=== PATIENT | female | born 1985 | race Caucasian/White ===

== ENCOUNTER 2019-02-16 12:21 | Observation (INO) | payer OTHER ==
[2019-02-16 13:40] LABS: ALT 17 U/L (9-52); AST 27 U/L (14-36); African American GFR (CKD) >90 (>60 ml/min/1.73 sqM); Albumin 4.6 g/dL (3.5-5.0); Alkaline Phosphatase 91 U/L (38-126); Anion Gap 12 mmol/L; Blood Urea Nitrogen 10 mg/dL (7-17); Calcium 9.7 mg/dL (8.4-10.2); Carbon Dioxide 22 mmol/L (22-30); Chloride 104 mmol/L (98-107); Glucose 125 mg/dL (74-99); Potassium 4.3 mmol/L (3.5-5.1); Sodium 138 mmol/L (137-145); Total Bilirubin 1.3 mg/dL (0.2-1.3)
[2019-02-16 13:51] LABS: Basophils % (A) 0 %; Eosinophils # (A) 0.1 k/uL (0-0.7); Eosinophils % (A) 1 %; HCT 44.6 % (34.0-46.0); HGB 15.1 gm/dL (11.4-16.0); Lymphocytes # (A) 0.8 k/uL (1.0-4.8); Lymphocytes % (A) 5 %; MCH 32.5 pg (25.0-35.0); MCHC 33.9 g/dL (31.0-37.0); Mean Platelet Volume 7.4; Monocytes # (A) 0.4 k/uL (0-1.0); Monocytes % (A) 3 %; Neutrophils # (A) 15.8 k/uL (1.3-7.7); Neutrophils % (A) 92 %; Platelet Count 278 k/uL (150-450); RBC 4.64 m/uL (3.80-5.40); RDW 14.3 % (11.5-15.5); WBC 17.3 k/uL (3.8-10.6)
[2019-02-16] MEDS ORDERED: ACETAMINOPHEN TAB 325 MG TAB PO STA (13:56)
[2019-02-16] MEDS ORDERED: ONDANSETRON 4 MG/2 ML VIAL IVP STA (13:56)
[2019-02-16] MEDS: SODIUM CHLORIDE 0.9% 1,000 ML IV STA (13:59)
[2019-02-16] MEDS ORDERED: MORPHINE SULFATE 4 MG/ML SYRINGE IV STA (14:54)
--- NOTE | 2019-02-16 15:10 | CT ---
EXAMINATION TYPE: CT abdomen pelvis w con DATE OF EXAM: 02/16/2019 COMPARISON: None HISTORY: Abdominal pain and vomiting. CT DLP: 936.2 mGycm Automated exposure control for dose reduction was used. TECHNIQUE: Helical acquisition of images was performed from the lung bases through the pelvis. CONTRAST: Performed without Oral Contrast and with IV Contrast, patient injected with 100ml mL of Isovue 300. FINDINGS: Lung bases are clear. There is no pleural effusion. Heart appears normal. Liver spleen pancreas gallbladder stomach appear normal. Bile ducts are not dilated. There is no adrenal mass. Kidneys show satisfactory contrast opacification. There is no hydronephrosi s. Ureters are not dilated. Bladder distends smoothly. There is no inguinal hernia. Uterus is antever yamileth. There is no free fluid in the pelvis. There is fluid-filled thickened appendix that measures up to 14 mm with some surrounding fat strandin g. There is no evidence of a bowel obstruction. There is no evidence of free air. There is no ascites. Lumbar vertebra have normal spacing and alignment. Bony pelvis is intact. There is no lumbar compress ion fracture. IMPRESSION: THERE IS THICKENED APPENDIX WITH SURROUNDING INFLAMMATORY CHANGES CONSISTENT WITH ACUTE APPENDICITIS.
[2019-02-16] MEDS ORDERED: metroNIDAZOLE-NS PMX 500 MG in SALINE 1 100ML.BAG IVPB STA (16:17)
[2019-02-16] MEDS ORDERED: ONDANSETRON 4 MG/2 ML VIAL IVP PRN (16:21)
[2019-02-16] MEDS ORDERED: NALOXONE 0.4 MG/ML 1 ML VIAL IV PRN (16:21)
--- NOTE | 2019-02-16 16:21 | ED ---
General Adult HPI - General Chief complaint: Abdominal Pain Stated complaint: abdominal pain Time Seen by Provider: 02/16/19 12:32 Source: patient, RN notes reviewed, old records reviewed Mode of arrival: wheelchair Limitations: no limitations - History of Present Illness Initial comments: 33-year-old female patient in ED presents with chief complaint of periumbilical pain has started today with associated nausea without emesis. Patient reports that the pain has migrated down the right lower quadrant. Patient states that she is not . Denies any other complaints at this time. Systemic: Pt denies fatigue, fever/chills, rash. Pt denies weakness, night sweats, weight loss. Neuro: Pt denies headache, visual disturbances, syncope or pre-syncope. HEENT: Pt denies ocular discharge or irritation, otalgia, rhinorrhea, pharyngitis or notable lymphadenopathy. Cardiopulmonary: Pt denies chest pain, SOB, heart palpitations, dyspnea on exertion. Abdominal/GI: Pt denies abdominal pain, n/v/d. : Pt denies dysuria, burning w/ urination, frequency/urgency. Denies new onset urinary or bowel incontinence. MSK: Pt denies myalgia, loss of strength or function in extremities. Neuro: Pt denies new onset weakness, paresthesias. - Related Data Home Medications Medication Instructions Recorded Confirmed No Known Home Medications 02/16/19 02/16/19 Allergies Allergy/AdvReac Type Severity Reaction Status Date / Time No Known Allergies Allergy Verified 02/16/19 13:37 Review of Systems ROS Statement: Those systems with pertinent positive or pertinent negative responses have been documented in the HPI. ROS Other: All systems not noted in ROS Statement are negative. Past Medical History Past Medical History: No Reported History History of Any Multi-Drug Resistant Organisms: None Reported Past Surgical History: Section Past Psychological History: No Psychological Hx Reported Smoking Status: Never smoker Past Alcohol Use History: Occasional Past Drug Use History: None Reported General Exam - General Exam Comments Initial Comments: Constitutional: NAD, AOX3, Pt has pleasant affect. HEENT: NC/AT, trachea midline, neck supple, no lymphadenopathy. Posterior pharynx non erythematous, without exudates. External ears appear normal, without discharge. Mucous membranes moist. Eyes PERRLA, EOM intact. There is no scleral icterus. No pallor noted. Cardiopulmonary: RRR, no murmurs, rubs or gallops, no JVD noted. Lungs CTAB in anterior and posterior anderson. No peripheral edema. Abdominal exam: Abdomen soft and non-distended. Abdomen moderately tender to palpation in right lower quadrant.. Bowel sounds active in LLQ. No hepatosplenomegaly. No ecchymosis Neuro: CN II-XII grossly intact. No nuchal rigidity. No raccon eyes, no obregon sign, no hemotympanum. No cervical spinal tenderness. MSK: No posterior calf tenderness bilaterally, homans sign negative bilaterally. Posterior tibialis and radial pulse +2 bilaterally. Sensation intact in upper and lower extremities. Full active ROM in upper and lower extremities, 5/5 stregnth. Limitations: no limitations Course Vital Signs 02/16/19 02/16/19 12:24 14:00 Temperature 97.8 F Pulse Rate 90 Respiratory 18 18 Rate Blood Pressure 118/86 O2 Sat by Pulse 99 Oximetry Medical Decision Making - Medical Decision Making 33-year-old female patient presents ED chief complaint of abdominal pain. Patient vital signs stable, afebrile. Physical exam displayed right lower quadrant abdominal pain. Investigations revealed leukocytosis of 17.3, Actiq acid of 2.1, hCG is negative. Lipase 43. CT abdomen and pelvis consistent with acute appendicitis no abscess, no perforation. Case discussed with attending physician Dr. Granados and on-call surgeon Dr. Silva, patient initiated on antibiotics Flagyl and Rocephin. Will be admitted for surgical intervention. - Lab Data Result diagrams: 02/16/19 13:14 02/16/19 13:14 Lab Results 02/16/19 02/16/19 02/16/19 Range/Units 13:14 13:14 13:14 WBC 17.3 H (3.8-10.6) k/uL RBC 4.64 (3.80-5.40) m/uL Hgb 15.1 (11.4-16.0) gm/dL Hct 44.6 (34.0-46.0) % MCV 96.0 (80.0-100.0) fL MCH 32.5 (25.0-35.0) pg MCHC 33.9 (31.0-37.0) g/dL RDW 14.3 (11.5-15.5) % Plt Count 278 (150-450) k/uL Neutrophils % 92 % Lymphocytes % 5 % Monocytes % 3 % Eosinophils % 1 % Basophils % 0 % Neutrophils # 15.8 H (1.3-7.7) k/uL Lymphocytes # 0.8 L (1.0-4.8) k/uL Monocytes # 0.4 (0-1.0) k/uL Eosinophils # 0.1 (0-0.7) k/uL Basophils # 0.0 (0-0.2) k/uL Sodium 138 (137-145) mmol/L Potassium 4.3 (3.5-5.1) mmol/L Chloride 104 (98-107) mmol/L Carbon Dioxide 22 (22-30) mmol/L Anion Gap 12 mmol/L BUN 10 (7-17) mg/dL Creatinine 0.70 (0.52-1.04) mg/dL Est GFR (CKD-EPI)AfAm >90 (>60 ml/min/1.73 sqM) Est GFR (CKD-EPI)NonAf >90 (>60 ml/min/1.73 sqM) Glucose 125 H (74-99) mg/dL Plasma Lactic Acid Lacho 2.1 H* (0.7-2.0) mmol/L Calcium 9.7 (8.4-10.2) mg/dL Total Bilirubin 1.3 (0.2-1.3) mg/dL AST 27 (14-36) U/L ALT 17 (9-52) U/L Alkaline Phosphatase 91 (38-126) U/L Total Protein 8.0 (6.3-8.2) g/dL Albumin 4.6 (3.5-5.0) g/dL Lipase 43 (23-300) U/L Urine HCG, Qual (Not Detectd) 02/16/19 Range/Units 14:15 WBC (3.8-10.6) k/uL RBC (3.80-5.40) m/uL Hgb (11.4-16.0) gm/dL Hct (34.0-46.0) % MCV (80.0-100.0) fL MCH (25.0-35.0) pg MCHC (31.0-37.0) g/dL RDW (11.5-15.5) % Plt Count (150-450) k/uL Neutrophils % % Lymphocytes % % Monocytes % % Eosinophils % % Basophils % % Neutrophils # (1.3-7.7) k/uL Lymphocytes # (1.0-4.8) k/uL Monocytes # (0-1.0) k/uL Eosinophils # (0-0.7) k/uL Basophils # (0-0.2) k/uL Sodium (137-145) mmol/L Potassium (3.5-5.1) mmol/L Chloride (98-107) mmol/L Carbon Dioxide (22-30) mmol/L Anion Gap mmol/L BUN (7-17) mg/dL Creatinine (0.52-1.04) mg/dL Est GFR (CKD-EPI)AfAm (>60 ml/min/1.73 sqM) Est GFR (CKD-EPI)NonAf (>60 ml/min/1.73 sqM) Glucose (74-99) mg/dL Plasma Lactic Acid Lacho (0.7-2.0) mmol/L Calcium (8.4-10.2) mg/dL Total Bilirubin (0.2-1.3) mg/dL AST (14-36) U/L ALT (9-52) U/L Alkaline Phosphatase (38-126) U/L Total Protein (6.3-8.2) g/dL Albumin (3.5-5.0) g/dL Lipase (23-300) U/L Urine HCG, Qual Not Detected (Not Detectd) Disposition Clinical Impression: Acute appendicitis Disposition: ADMITTED IP TO THIS [facility] Condition: Serious Is patient prescribed a controlled substance at d/c from ED?: No Referrals: Mariana Schwarz DO [Primary Care Provider] - 1-2 days
[2019-02-16 17:18] LABS: Appearance,Urine Clear (Clear); Bacteria,Urine Rare /hpf; Bilirubin,Urine Negative (Negative); Blood,Urine Negative (Negative); Color,Urine Yellow; Glucose,Urine (UA) Negative (Negative); Ketones,Urine 4+ (Negative); Leukocyte Esterase,Urine Moderate (Negative); Mucus,Urine Few /hpf; Nitrite,Urine Negative (Negative); PH, Urine 8.5 (5.0-8.0); Protein,Urine 1+ (Negative); Specific Gravity,Urine 1.031 (1.001-1.035); Squamous Epithelial Cell,Urine 3 /hpf (0-4); Urobilinogen,Urine <2.0 mg/dL (<2.0); WBC,Urine 4 /hpf (0-5)
[2019-02-16] MEDS: MORPHINE SULFATE 4 MG/ML SYRINGE IV PRN (21:15)
[2019-02-16] MEDS: SODIUM CHLORIDE 0.9% 1,000 ML IV SCH (21:20)
[2019-02-17] MEDS: metroNIDAZOLE-NS PMX 500 MG in SALINE 1 100ML.BAG IVPB SCH ×3 (00:06→16:17)
[2019-02-17] MEDS: SODIUM CHLORIDE 0.9% 1,000 ML IV SCH ×3 (06:04→22:13)
[2019-02-17] MEDS: MORPHINE SULFATE 4 MG/ML SYRINGE IV PRN ×2 (06:07→15:07)
[2019-02-17] MEDS ORDERED: HEPARIN SODIUM,PORCINE 5,000 UNIT/ML 1 ML VIAL SQ STA (08:45)
--- NOTE | 2019-02-17 08:48 | P.GSHP ---
History of Present Illness H&P Date: 02/17/19 CHIEF COMPLAINT: Right lower quadrant abdominal pain with appendicitis for 1 day. HISTORY OF PRESENT ILLNESS: The patient is a previously healthy 33-year-old female who presents with 1 day history of periumbilical with right lower quadrant abdominal pain that started yesterday afternoon. No reports of prior abdominal pain. She states the intensity of the pain is moderate. She reports nausea. She also had diarrhea. She also reports anorexia. She presented with CT abdomen and pelvis consistent with appendicitis hence general surgery admission. PAST MEDICAL HISTORY: See list. PAST SURGICAL HISTORY: See list. CURRENT MEDICATIONS: See list. ALLERGIES: See list. SOCIAL HISTORY: See list. FAMILY HISTORY: See list. REVIEW OF ORGAN SYSTEMS: CONSTITUTIONAL: Denies any fever or chills. Denies recent weight loss. HEENT: Denies any trouble with vision, hearing or nosebleeds. No difficulty swallowing. LYMPHATIC: The patient denies any lumps and bumps around the neck. ENDOCRINE: Denies any thyroid disorders. Denies any blood sugar glucose intolerance. RESPIRATORY: Denies shortness of breath including chronic cough. CARDIOVASCULAR: Denies history of chest pain with exertion. GASTROINTESTINAL: Denies regurgitation of bile at night as well as intermittent nausea. No blood in stools. GENITOURINARY: Denies any blood in urine or increased urinary frequency. MUSCULOSKELETAL: Denies current joint arthritis. NEUROLOGIC: Denies any numbness or tingling along the distal extremities. No seizure disorders or headaches. PSYCHIATRIC: Denies any depression or suicidal ideation. HEMATOLOGIC: Denies any abnormal bleeding or bruising. PHYSICAL EXAMINATION: GENERAL: Well developed and in no acute distress. Pleasant. HEENT: No sclera icterus. Extraocular movements grossly intact. Moist buccal mucosa. Head is atraumatic, normocephalic. Hears conversational speech. No nasal drainage. NECK: Supple without lymphadenopathy. No JV distention. CHEST: Non-labored respirations and equal bilateral excursions. CARDIOVASCULAR: Regular rate and rhythm. Palpable 2+ radial pulses. ABDOMEN: Soft, tender at the right lower quadrant without guarding. MUSCULOSKELETAL: No clubbing, cyanosis or edema. NEUROLOGIC: No focal or lateralizing signs. PSYCH: Appropriate affect. Alert and oriented to person, place and time. SKIN: Well perfused. Good skin turgor. LABS: Reviewed. White blood cell count over 15,000 STUDIES: CT of the abdomen and pelvis independently reviewed with findings consistent with dilated appendix tumor or quadrant ASSESSMENT: 1. Right lower quadrant pain. 2. Appendicitis. 3. Leukocytosis. PLAN: 1. I have discussed benefits and risks of laparoscopic appendectomy. 2. Bilateral SCDs. 3. Antibiotics. 4. DVT prophylaxis with heparin. 5. GI prophylaxis. Thank you very much for allowing me to participate in the care of your patient. Past Medical History Past Medical History: No Reported History History of Any Multi-Drug Resistant Organisms: None Reported Past Surgical History: Section Past Psychological History: No Psychological Hx Reported Smoking Status: Never smoker Past Alcohol Use History: Occasional Past Drug Use History: None Reported - Past Family History Mother Additional Family Medical History / Comment(s): arthritis , carpal tunnel Father Family Medical History: Hypertension Additional Family Medical History / Comment(s): ETOH, Medications and Allergies Home Medications Medication Instructions Recorded Confirmed Type No Known Home Medications 02/16/19 02/16/19 History Allergies Allergy/AdvReac Type Severity Reaction Status Date / Time No Known Allergies Allergy Verified 02/16/19 18:13 Surgical - Exam Vital Signs Temp Pulse Resp BP Pulse Ox 97.8 F 90 18 118/86 99 02/16/19 12:24 02/16/19 12:24 02/16/19 12:24 02/16/19 12:24 02/16/19 12:24 Results - Labs 02/16/19 13:14 02/16/19 13:14 Abnormal Lab Results - Last 24 Hours (Table) 02/16/19 02/16/19 02/16/19 Range/Units 13:14 13:14 13:14 WBC 17.3 H (3.8-10.6) k/uL Neutrophils # 15.8 H (1.3-7.7) k/uL Lymphocytes # 0.8 L (1.0-4.8) k/uL Glucose 125 H (74-99) mg/dL Plasma Lactic Acid Lacho 2.1 H* (0.7-2.0) mmol/L Urine pH (5.0-8.0) Urine Protein (Negative) Urine Ketones (Negative) Ur Leukocyte Esterase (Negative) Urine Bacteria (None) /hpf Urine Mucus (None) /hpf 02/16/19 Range/Units 14:15 WBC (3.8-10.6) k/uL Neutrophils # (1.3-7.7) k/uL Lymphocytes # (1.0-4.8) k/uL Glucose (74-99) mg/dL Plasma Lactic Acid Lacho (0.7-2.0) mmol/L Urine pH 8.5 H (5.0-8.0) Urine Protein 1+ H (Negative) Urine Ketones 4+ H (Negative) Ur Leukocyte Esterase Moderate H (Negative) Urine Bacteria Rare H (None) /hpf Urine Mucus Few H (None) /hpf Diabetes panel 02/16/19 Range/Units 13:14 Sodium 138 (137-145) mmol/L Potassium 4.3 (3.5-5.1) mmol/L Chloride 104 (98-107) mmol/L Carbon Dioxide 22 (22-30) mmol/L BUN 10 (7-17) mg/dL Creatinine 0.70 (0.52-1.04) mg/dL Glucose 125 H (74-99) mg/dL Calcium 9.7 (8.4-10.2) mg/dL AST 27 (14-36) U/L ALT 17 (9-52) U/L Alkaline Phosphatase 91 (38-126) U/L Total Protein 8.0 (6.3-8.2) g/dL Albumin 4.6 (3.5-5.0) g/dL Calcium panel 02/16/19 Range/Units 13:14 Calcium 9.7 (8.4-10.2) mg/dL Albumin 4.6 (3.5-5.0) g/dL Pituitary panel 02/16/19 Range/Units 13:14 Sodium 138 (137-145) mmol/L Potassium 4.3 (3.5-5.1) mmol/L Chloride 104 (98-107) mmol/L Carbon Dioxide 22 (22-30) mmol/L BUN 10 (7-17) mg/dL Creatinine 0.70 (0.52-1.04) mg/dL Glucose 125 H (74-99) mg/dL Calcium 9.7 (8.4-10.2) mg/dL Adrenal panel 02/16/19 Range/Units 13:14 Sodium 138 (137-145) mmol/L Potassium 4.3 (3.5-5.1) mmol/L Chloride 104 (98-107) mmol/L Carbon Dioxide 22 (22-30) mmol/L BUN 10 (7-17) mg/dL Creatinine 0.70 (0.52-1.04) mg/dL Glucose 125 H (74-99) mg/dL Calcium 9.7 (8.4-10.2) mg/dL Total Bilirubin 1.3 (0.2-1.3) mg/dL AST 27 (14-36) U/L ALT 17 (9-52) U/L Alkaline Phosphatase 91 (38-126) U/L Total Protein 8.0 (6.3-8.2) g/dL Albumin 4.6 (3.5-5.0) g/dL
[2019-02-17] MEDS ORDERED: ROCURONIUM BROMIDE 10 MG/ML 10 ML VIAL IV ONE (08:49)
[2019-02-17] MEDS ORDERED: SUCCINYLCHOLINE CHLORIDE 100 MG/5 ML SYR IV ONE (08:49)
[2019-02-17] MEDS ORDERED: KETOROLAC 30 MG/ML 1 ML VIAL ONE (08:49)
[2019-02-17] MEDS ORDERED: PROPOFOL 10 MG/ML 20 ML VIAL IV ONE (08:49)
[2019-02-17] MEDS ORDERED: fentaNYL (PF) 50 MCG/ML 2 ML AMP ONE (08:49)
[2019-02-17] MEDS ORDERED: MIDAZOLAM 2 MG/2 ML VIAL ONE (08:49)
[2019-02-17] MEDS ORDERED: HEPARIN SODIUM,PORCINE 5,000 UNIT/ML 1 ML VIAL ONE (08:49)
[2019-02-17] MEDS ORDERED: LIDOCAINE 1% INJ 10MG/ML (20 ML MDV) ONE (08:49)
[2019-02-17] MEDS ORDERED: ONDANSETRON 4 MG/2 ML VIAL ONE (08:49)
[2019-02-17] MEDS ORDERED: NEOSTIGMINE 1 MG/ML 10 ML VIAL ONE (08:49)
[2019-02-17] MEDS ORDERED: GLYCOPYRROLATE 0.2 MG/ML 2 ML VIAL ONE (08:49)
[2019-02-17] MEDS ORDERED: IV FLUID CONTINUATION 1,000 ML IV ONE (08:54)
[2019-02-17] MEDS ORDERED: BUPIVACAIN-EPI 0.25%-1:200,000 30 ML VIAL SQ ONE (09:26)
[2019-02-17] MEDS ORDERED: LACTATED RINGERS 1,000 ML IV ONE (10:24)
[2019-02-17] MEDS: HYDROmorphone 1 MG/ML 1 ML SYRINGE IVP ONE ×2 (10:44→10:51)
[2019-02-17] MEDS ORDERED: ACETAMINOPHEN TAB 325 MG TAB PO PRN (10:50)
--- NOTE | 2019-02-17 10:50 | P.OP ---
Date of Procedure: 02/17/19 Description of Procedure: SURGEON: MARCIN ELIZONDO MD TESTING MANAGER: None. PREOPERATIVE DIAGNOSES: 1. Right lower quadrant abdominal pain. 2. Acute appendicitis. 3. Leukocytosis. POSTOPERATIVE DIAGNOSES: 1. Right lower quadrant abdominal pain. 2. Retrocecal acute appendicitis with periappendicitis without rupture 3. Leukocytosis. PROCEDURES PERFORMED: 1. Diagnostic laparoscopy. 2. Laparoscopic appendectomy. ANESTHESIA: General with local. ESTIMATED BLOOD LOSS: 5 mL. SPECIMENS REMOVED: Appendix COMPLICATIONS: None. OPERATIVE FINDINGS: 1. Acute appendicitis with dilation of the appendix and periappendicitis without rupture 2. The colon was unremarkable 3. Unremarkable small bowel and terminal ileum. 4. No follicular cysts of the right ovary. INDICATIONS: The patient is a 33-year-old female who presents with 24-hour history of right lower quadrant abdominal pain. She reported nausea, including anorexia. CT of the abdomen and pelvis was obtained demonstrating findings consistent with acute appendicitis. Benefits and risks, including possibility of open technique were described at length. Informed consent was obtained. DESCRIPTION OR PROCEDURE: Patient was brought to the operating room, laid in supine position. After general induction, the abdomen was prepped and draped in standard sterile fashion. Prior to incision, a timeout protocol was confirmed with surgical team regarding patient's name including procedure to be performed. Preoperative medication of Antibiotics were given intraoperatively. Additionally, bilateral SCDs were placed. A 0 degree 5 mm laparoscopic trocar entry was performed and entered into the peritoneal cavity. The abdomen was insufflated to 15 mmHg of pressure, which she tolerated well. Diagnostic laparoscopy demonstrated no injury to bowel, viscera or mesentery. A 5 mm port was placed just above the pubis. A separate 12 mm port was placed at the left lower quadrant all under direct visualization. The patient was placed in Trendelenburg position with the right side up. A systematic view within the abdominal cavity was started with the small bowel which was unremarkable. The base of the cecum was without inflammation. The appendix was retrocecal dilated and with periappendicitis consistent with acute appendicitis. A 45 mm Endo JUAN M echelon stapler was fired across using a low vascular load. The staple line was completely hemostatic. The specimen was removed from the abdominal cavity with a 10 mm Endo Catch bag through the 12 mm trocar. The trocar site was oversewn using 0 Vicryl in Juan Antonio Mccoy. All instruments and pneumoperitoneum were evacuated from the abdominal cavity. Local anesthetic was infiltrated in all wounds for postop analgesia. Dermabond was applied to the skin after reapproximating the incisions with 4-0 Monocryl as described. Optifoam dressing was placed over the 12-mm trocar site where specimen removal occured. At the end of the procedure, needle, sponge, and instrument count was verified correct by electrical laboratory technician. The patient had tolerated the procedure well, was taken to the postanesthesia care unit in stable condition. Intraoperative abdominal films were described and discussed with her family who were overall pleased with her level of care.
[2019-02-17] MEDS ORDERED: KETOROLAC 30 MG/ML 1 ML VIAL IVP SCH (12:00)
[2019-02-17 12:01] LABS: Basophils % (A) 0 %; Eosinophils # (A) 0.1 k/uL (0-0.7); Eosinophils % (A) 1 %; HCT 33.5 % (34.0-46.0); Lymphocytes # (A) 0.7 k/uL (1.0-4.8); Lymphocytes % (A) 8 %; MCH 33.4 pg (25.0-35.0); MCHC 33.9 g/dL (31.0-37.0); MCV 98.6 fL (80.0-100.0); Mean Platelet Volume 7.1; Monocytes # (A) 0.2 k/uL (0-1.0); Monocytes % (A) 3 %; Neutrophils # (A) 7.7 k/uL (1.3-7.7); Neutrophils % (A) 88 %; Platelet Count 176 k/uL (150-450); RBC 3.39 m/uL (3.80-5.40); RDW 14.3 % (11.5-15.5); WBC 8.8 k/uL (3.8-10.6)
[2019-02-17 12:03] LABS: HGB 11.3 gm/dL (11.4-16.0)
[2019-02-17] MEDS ORDERED: SODIUM CHLORIDE 0.9% 1,000 ML IV ONE (12:18)
[2019-02-17] MEDS: SODIUM CHLORIDE 0.9% 1,000 ML IV STA (12:36)
[2019-02-17] MEDS: KETOROLAC 30 MG/ML 1 ML VIAL IVP SCH ×2 (16:17→22:12)
[2019-02-18] MEDS: metroNIDAZOLE-NS PMX 500 MG in SALINE 1 100ML.BAG IVPB SCH ×2 (00:15→08:39)
[2019-02-18] MEDS: KETOROLAC 30 MG/ML 1 ML VIAL IVP SCH ×2 (04:00→10:01)
[2019-02-18 04:16] VITALS: RESP 18
[2019-02-18] MEDS: SODIUM CHLORIDE 0.9% 1,000 ML IV SCH (06:35)
[2019-02-18 08:53] VITALS: BP 126/81; PULSE 74; TEMP 98.2
[2019-02-18 11:06] LABS: Basophils % (A) 0 %; Eosinophils % (A) 1 %; HCT 32.7 % (34.0-46.0); HGB 10.7 gm/dL (11.4-16.0); Lymphocytes # (A) 0.9 k/uL (1.0-4.8); Lymphocytes % (A) 16 %; MCH 32.5 pg (25.0-35.0); MCHC 32.7 g/dL (31.0-37.0); MCV 99.2 fL (80.0-100.0); Mean Platelet Volume 7.1; Monocytes # (A) 0.2 k/uL (0-1.0); Monocytes % (A) 4 %; Neutrophils # (A) 4.5 k/uL (1.3-7.7); Neutrophils % (A) 78 %; Platelet Count 169 k/uL (150-450); RDW 13.1 % (11.5-15.5); WBC 5.7 k/uL (3.8-10.6)
--- NOTE | 2019-02-18 11:07 | P.DS ---
<SommerSusie Ramez - Last Filed: 02/18/19 11:05> Providers Expected date of discharge: 02/18/19 - Discharge Diagnosis(es) (1) Acute appendicitis Status: Acute Hospital Course: 33-year-old female presenting to the emergency room with a chief complaint of periumbilical and right lower quadrant abdominal pain. CT abdomen and pelvis was consistent with appendicitis. patient underwent laparoscopic appendectomy with Dr. Silva. Patient is doing well postoperatively without any immediate complications. She is tolerating diet. Vital signs have been stable. Pain controlled with oral medications. She is stable for discharge home today. Please see EMR for further hospital course details. Discharge diagnosis 1. Right lower quadrant abdominal pain 2. Retrocecal acute appendicitis with periappendicitis without rupture 3. Leukocytosis Nurse practitioner note has been reviewed by physician. Signing provider agrees with the documented findings, assessment, and plan of care. Patient Condition at Discharge: Stable Plan - Discharge Summary Discharge Rx Participant: No New Discharge Prescriptions: New Ibuprofen [Motrin] 600 mg PO Q8HR PRN #30 tab PRN Reason: Pain Acetaminophen Tab [Tylenol Tab] 650 mg PO Q4H PRN #30 tablet PRN Reason: Pain Discharge Medication List Acetaminophen Tab [Tylenol Tab] 650 mg PO Q4H PRN #30 tablet 02/18/19 [Rx] Ibuprofen [Motrin] 600 mg PO Q8HR PRN #30 tab 02/18/19 [Rx] Follow up Appointment(s)/Referral(s): Fabiana Silva MD [STAFF PHYSICIAN] - 02/27/19 3:30 pm Mariana Schwarz DO [Primary Care Provider] - 1-2 days Activity/Diet/Wound Care/Special Instructions: no lifting over 10 lbs until 02/27/19 diet as tolerated light activity you may shower. no baths or soaking until 02/27/19 Tylenol or Motrin as needed for pain. Discharge Disposition: HOME SELF-CARE <Fabiana Silva - Last Filed: 02/18/19 18:07> Providers Date of admission: 02/17/19 10:50 Attending physician: Fabiana Silva Primary care physician: Mariana Schwarz
== END 2019-02-18 11:47 | disposition home or self-care (01) ==
LOC: EC 12:21 → 6PED 15:24 → INTOOBSV 02-17 10:50 → OBSVTOIN 02-17 10:50 → UNDODISIN 02-18 11:47
PROVIDERS: ADMIT Surgery Plastic and Reconstructive Surgery; ATTEND Surgery Plastic and Reconstructive Surgery
PROC: 0DTJ4ZZ Resection of Appendix, Percutaneous Endoscopic Approach (ICD-10-PCS; principal; 2019-02-17 09:00)
DX: K35.80 Unspecified acute appendicitis (principal); Z98.891 History of uterine scar from previous surgery; Z82.49 Family history of ischemic heart disease and other diseases of the circulatory system; Z82.61 Family history of arthritis; Z82.69 Family history of other diseases of the musculoskeletal system and connective tissue; Z81.1 Family history of alcohol abuse and dependence
CPT/HCPCS: 44970; 99285; 36415; 88304; 80053; 83605; 83690; 85025 ×3; 81001; 81025; 74177; G0378 ×4; J2250; J2270 ×2; J1644; J2710; J2405 ×2; J2001; J0696 ×2; J3010; J1885 ×2; J1170; J0330; J2704; Q9967; 96365; 96375

== ENCOUNTER → 2019-03-21 | Outpatient (CLI) | payer OTHER ==
[2019-03-21 20:15] LABS: Hepatitis A Antibody IgM Non-Reactive (Non-Reactive); Hepatitis B Core IgM Non-Reactive (Non-Reactive); Hepatitis B Surface Antigen Non-Reactive (Non-Reactive); Hepatitis C IgG Antibody Non-Reactive (Non-Reactive)
[2019-03-21 20:55] LABS: HIV 1 AB Non-Reactive (Non-Reactive); HIV 2 AB Non-Reactive (Non-Reactive); HIV AB P24 Non-Reactive (Non-Reactive); HIV P24 AG Non-Reactive (Non-Reactive)
== END | disposition home or self-care (01) ==
LOC: LABWHC1 10:43
PROVIDERS: ATTEND Family Medicine
DX: E66.9 Obesity, unspecified (principal); R00.0 Tachycardia, unspecified
CPT/HCPCS: 36415; 80074; 82533; 84439; 84443; 84481; 87390

== ENCOUNTER 2024-05-30 16:40 | Emergency (ER) | payer OTHER ==
--- NOTE | 2024-05-30 17:05 | ED ---
Chest Pain HPI - General Chief Complaint: Chest Pain Stated Complaint: Chest Pain Time Seen by Provider: 05/30/24 16:45 Source: patient, RN notes reviewed, old records reviewed Mode of arrival: EMS Limitations: no limitations - History of Present Illness Initial Comments: This is a 38-year-old female to the ER for evaluation of chest pain today. Patient presents today for evaluation of chest pain and chest tightness substernal patient has had this pain for a few days maybe a little bit worse today as she was at a family event. Patient does admit to increased life stress, family history of heart disease, no prior history of chest pain or self. No travel history or sick contacts no fevers recent pneumonia with cough and congestion MD Complaint: chest pain -: days(s) Onset: during rest Pain Location: substernal Pain Radiation: none Severity: mild Quality: tightness Consistency: constant, intermittent Improves With: nothing Worsens With: nothing Context: other (0) Anginal Symptoms: other Other Symptoms: other (0) Treatments Prior to Arrival: none - Related Data Previous Rx's Medication Instructions Recorded Acetaminophen Tab [Tylenol Tab] 650 mg PO Q4H PRN #30 tablet 02/18/19 Ibuprofen [Motrin] 600 mg PO Q8HR PRN #30 tab 02/18/19 Losartan [Cozaar] 50 mg PO DAILY #60 tab 05/30/24 Allergies Allergy/AdvReac Type Severity Reaction Status Date / Time No Known Allergies Allergy Verified 05/30/24 16:51 Review of Systems ROS Statement: Those systems with pertinent positive or pertinent negative responses have been documented in the HPI. ROS Other: All systems not noted in ROS Statement are negative. EKG Findings - EKG Comments: EKG Findings:: EKG is sinus 95 MD 152 QRS 96 QTc 436 - EKG Results: EKG: interpreted by GONZALO Past Medical History Past Medical History: No Reported History Additional Past Medical History / Comment(s): philipp thinks she has high blood pressure History of Any Multi-Drug Resistant Organisms: None Reported Past Surgical History: Appendectomy, Section Past Psychological History: No Psychological Hx Reported Past Alcohol Use History: Occasional Past Drug Use History: None Reported - Past Family History Mother Additional Family Medical History / Comment(s): arthritis , carpal tunnel Father Family Medical History: Hypertension Additional Family Medical History / Comment(s): ETOH, General Exam General appearance: anxious Head exam: Present: atraumatic, normocephalic, normal inspection Eye exam: Present: normal appearance, PERRL, EOMI. Absent: scleral icterus, conjunctival injection, periorbital swelling ENT exam: Present: normal exam, mucous membranes moist Neck exam: Present: normal inspection. Absent: tenderness, meningismus, lymphadenopathy Respiratory exam: Present: normal lung sounds bilaterally. Absent: respiratory distress, wheezes, rales, rhonchi, stridor Cardiovascular Exam: Present: regular rate, normal rhythm, normal heart sounds. Absent: systolic murmur, diastolic murmur, rubs, gallop, clicks GI/Abdominal exam: Present: soft, normal bowel sounds. Absent: distended, tenderness, guarding, rebound, rigid Extremities exam: Present: normal inspection, full ROM, normal capillary refill. Absent: tenderness, pedal edema, joint swelling, calf tenderness Back exam: Present: normal inspection Neurological exam: Present: alert, oriented X3, CN II-XII intact Psychiatric exam: Present: normal affect, normal mood Skin exam: Present: warm, dry, intact, normal color. Absent: rash Course Vital Signs 05/30/24 05/30/24 16:43 17:23 Temperature 99.1 F Pulse Rate 98 91 Respiratory 18 20 Rate Blood Pressure 141/111 148/99 O2 Sat by Pulse 98 96 Oximetry - Reevaluation(s) Reevaluation #1: 05/30/24 18:04 Medical record is reviewed Reevaluation #2: 05/30/24 18:04 Patient symptoms unchanged Reevaluation #3: 05/30/24 18:04 Patient informed of results and questions answered Reevaluation #4: Was pt. sent in by a medical professional or institution (, PA, COPYHOLDER, urgent care, hospital, or longterm...) When possible be specific @ -no Did you speak to anyone other than the patient for history (EMS, parent, family, police, friend...)? What history was obtained from this source @ -no Did you review nursing and triage notes (agree or disagree)? Why? @ -agree Are old charts reviewed (outside hosp., previous admission, EMS record, old EKG, old radiological studies, urgent care reports/EKG's, longterm records)? Report findings @ -yes Differential Diagnosis (chest pain, altered mental status, abdominal pain women, abdominal pain men, vaginal bleeding, weakness, fever, dyspnea, syncope, headache, dizziness, GI bleed, back pain, seizure, CVA, palpatations, mental health, musculoskeletal)? @ -prior EKG interpreted by me (3pts min.). @ -yes X-rays interpreted by me (1pt min.). @ -yes negative for acute disease CT interpreted by me (1pt min.). @ -no U/S interpreted by me (1pt. min.). @ -no What testing was considered but not performed or refused? (CT, X-rays, U/S, labs)? Why? @ -none What meds were considered but not given or refused? Why? @ -none Did you discuss the management of the patient with other professionals (professionals i.e. , PA, COPYHOLDER, lab, RT, psych nurse, socially responsible investment adviser, news production supervisor, teacher, operations officer trust department, medical case worker)? Give summary @ -no Was smoking cessation discussed for >3mins.? @ -no Was critical care preformed (if so, how long)? @ -no Were there social determinants of health that impacted care today? How? (Homelessness, low income, unemployed, alcoholism, drug addiction, transportation, low edu. Level, literacy, decrease access to med. care, long-term, rehab)? @ -none Was there de-escalation of care discussed even if they declined (Discuss DNR or withdrawal of care, Hospice)? DNR status @ -no What co-morbidities impacted this encounter? (DM, HTN, Smoking, COPD, CAD, Cancer, CVA, ARF, Chemo, Hep., AIDS, mental health diagnosis, sleep apnea, morbid obesity)? @ -none Was patient admitted / discharged? Hospital course, mention meds given and route, prescriptions, significant lab abnormalities, going to OR and other pertinent info. @ - Undiagnosed new problem with uncertain prognosis? @ -no Drug Therapy requiring intensive monitoring for toxicity (Heparin, Nitro, Insulin, Cardizem)? @ -no Were any procedures done? @ -no Diagnosis/symptom? @ - Acute, or Chronic, or Acute on Chronic? @ -Acute Uncomplicated (without systemic symptoms) or Complicated (systemic symptoms)? @ -Complicated Side effects of treatment? @ -no Exacerbation, Progression, or Severe Exacerbation? @ -exacerbation Poses a threat to life or bodily function? How? (Chest pain, USA, CT, pneumonia, PE, COPD, DKA, ARF, appy, cholecystitis, CVA, Diverticulitis, Homicidal, Suicidal, threat to staff... and all critical care pts) @ -yes Reevaluation #5: Differential Chest Pain: Stable Angina, Unstable Angina, STEMI, NSTEMI Aortic Dissection, Pneumothorax, Musculoskeletal, Esophageal Spasm GERD, Cholecystitis, Pancreatitis, Zoster, this is not meant to be an all-inclusive list. Chest Pain MDM - MDM 38 Female to the ER for evaluation patient considered for evaluation of chest pain does appear to be related to anxiety and life stressors, patient has uncontrolled blood pressure which she has not been taking her medication for, patient has no other complaints here in the ER feels better throughout ER stay normal lab testing troponin x-ray and EKG, patient can be discharged home Disposition Clinical Impression: Chest pain, Hypertension Disposition: HOME SELF-CARE Condition: Good Instructions (If sedation given, give patient instructions): Chest Pain (ED), Hypertension (ED) Prescriptions: Losartan [Cozaar] 50 mg PO DAILY #60 tab Is patient prescribed a controlled substance at d/c from ED?: No Referrals: Dom Escudero MD [STAFF PHYSICIAN] - 1-2 days [facility] [Provider Group] - 1-2 days Time of Disposition: 18:00
[2024-05-30 17:06] LABS: Basophils % (A) 0 %; Eosinophils # (A) 0.1 k/uL (0-0.7); Eosinophils % (A) 1 %; HCT 41.6 % (34.0-46.0); HGB 13.7 gm/dL (11.4-16.0); Lymphocytes # (A) 1.5 k/uL (1.0-4.8); Lymphocytes % (A) 19 %; MCH 32.1 pg (25.0-35.0); MCV 97.2 fL (80.0-100.0); Mean Platelet Volume 7.1; Monocytes # (A) 0.2 k/uL (0-1.0); Monocytes % (A) 3 %; Neutrophils % (A) 75 %; Platelet Count 224 k/uL (150-450); RBC 4.28 m/uL (3.80-5.40); RDW 12.4 % (11.5-15.5); WBC 7.9 k/uL (3.8-10.6)
[2024-05-30 17:19] LABS: ALT 184 U/L (4-34); AST 269 U/L (14-36); African American GFR (CKD) >90 (>60 ml/min/1.73 sqM); Alcohol <10 mg/dL; Alkaline Phosphatase 79 U/L (38-126); Anion Gap 7 mmol/L; Blood Urea Nitrogen 10 mg/dL (7-17); Calcium 8.7 mg/dL (8.4-10.2); Carbon Dioxide 23 mmol/L (22-30); Chloride 100 mmol/L (98-107); Glucose 146 mg/dL (74-99); Lipase 69 U/L (23-300); Magnesium 1.2 mg/dL (1.6-2.3); Non-African American GFR(CKD) >90 (>60 ml/min/1.73 sqM); Potassium 3.7 mmol/L (3.5-5.1); Sodium 130 mmol/L (137-145); Total Bilirubin 0.9 mg/dL (0.2-1.3); Total Protein 6.9 g/dL (6.3-8.2)
[2024-05-30 17:22] LABS: Partial Thromboplastin Time 25.5 sec (22.0-30.0); Prothrombin Time 10.8 sec (10.0-12.5)
[2024-05-30] MEDS: LORazepam 2 MG/ML INJ IV STA (17:22)
[2024-05-30] MEDS: SODIUM CHLORIDE 0.9% 1,000 ML IV STA (17:22)
[2024-05-30 17:28] LABS: NT-Pro-B-Type Natriuretic Pept <20 pg/mL
--- NOTE | 2024-05-30 17:40 | XR ---
EXAMINATION TYPE: XR chest 2V DATE OF EXAM: 05/30/2024 5:37 PM COMPARISON: None available. CLINICAL INDICATION: Female, 38 years old with history of Chest Pain; [facility] TECHNIQUE: XR chest 2V Frontal and lateral views of the chest. FINDINGS: Lungs/Pleura: There is no evidence of pleural effusion, focal consolidation, or pneumothorax. Pulmonary vascularity: Unremarkable. Heart/mediastinum: Cardiomediastinal silhouette is unremarkable. Musculoskeletal: No acute osseous pathology. Other findings: None IMPRESSION: No acute cardiopulmonary disease/process. [facility], , 05/30/2024 5:38 PM
[2024-05-30 18:22] VITALS: RESP 18
[2024-05-30] MEDS: LABETALOL 5 MG/ML VIAL MDV IVP STA (18:22)
[2024-05-30] MEDS: MAGNESIUM SULFATE-D5W PMX 1 GM in DEXTROSE/WATER 1 100ML.BAG IVPB ONE (18:23)
[2024-05-30] MEDS: MAGNESIUM OXIDE 400 MG TAB PO STA ×2 (18:25)
[2024-05-30] MEDS: LOSARTAN 25 MG TAB PO STA (18:27)
[2024-05-30 19:12] VITALS: BP 133/93; PULSE 84; TEMP 97.8
== END 2024-05-30 19:23 | disposition home or self-care (01) ==
LOC: EC 16:40
DX: R07.89 Other chest pain (principal); I10 Essential (primary) hypertension
CPT/HCPCS: 36415; 93005; 85379; 83880; 80053; 83690; 83735; 84484; 85025; 85610; 85730; 71046; 99285; 96365; 96375 ×2; 96361; G0480; J2060; J3475; J1920; 80320